=== PATIENT | male | born 1965 | race Caucasian/White ===

== ENCOUNTER 2023-10-20 18:18 | Emergency (ER) | payer BC, SELFPAY ==
[2023-10-20 18:19] VITALS: BP 180/107
--- NOTE | 2023-10-20 19:23 | ED.GENMED ---
History of Present Illness
General
Chief Complaint: Musculo-Skeletal Complaint
Source: patient and spouse
Exam Limitations: none
Time Seen by Provider: 10/20/23 18:37
Nursing documentation reviewed up to this point in time: agreed with
History of Present Illness
History of Present Illness:
58-year-old male presenting to the emergency department today with concerns of a pop and sensation of sharp pain to the right leg after using rubbing her peñaloza. Difficulty straightening her leg since. Denies numbness weakness or additional concerns
otherwise.
Past History
Past History
ED Past Medical History: Asthma and Other (Kindey stones)
ED Past Surgical History: Orthopedic
Social History
Tobacco: Non-smoker
Alcohol: Occasional
Personal:
Living: with family
Employment: Employed
Family History
Family History: Hypertension and CAD
Review of Systems
Review of Systems
Allergies reviewed?: Yes
All Other Systems: ROS reviewed and negative except as documented in HPI and ROS
Phy Exam
Physical Exam
Physical Exam:
GENERAL: Alert , in no apparent distress
EYE: pupils equal and reactive
NECK: Supple, no significant adenopathy.
ENT: o/p clr, mmm.
CARDIAC: Regular rate and rhythm .
LUNGS: Clear breath sounds bilaterally, no acute respiratory distress, no wheezes/rales/rhonchi
ABDOMEN: Soft, without focal tenderness, no r/g, no cvat
NEUROLOGICAL: Alert and oriented, no focal neuro deficits
SKIN: Warm and dry, skin intact.
MUSCULOSKELETAL: Tender palpation to the lateral aspect of the knee no joint laxity no tenderness to the bony surfaces, normal range of motion and strength of the hip and ankle. Good range of motion of the knee no edema, well perfused.
PSYCH: Normal and appropriate interaction.
Course
Orders/Labs/Results
Orders:
Orders
10/20/23 18:22
Knee, Right 4 or More Views [CR Knee- Right 4 Or More View*] Urgent
Comment:
Reason For Exam: pain
10/20/23 19:22
Knee Immobilizer Right-Treatme ONCE
Vital Signs
Initial and Last Documented VS:
Initial Vital Signs
Temp Pulse Resp BP Pulse Ox
98.0 F 68 18 180/107 96
10/20/23 18:19 10/20/23 18:19 10/20/23 18:19 10/20/23 18:19 10/20/23 18:19
Last Documented Vital Signs
Temp Pulse Resp BP Pulse Ox
98.0 F 68 18 180/107 96
10/20/23 18:19 10/20/23 18:19 10/20/23 18:19 10/20/23 18:19 10/20/23 18:19
MDM/Problems Addressed
MDM/Problems Addressed:
58-year-old male presenting to the emergency department today with concerns of a popping sensation to the right knee and lateral knee discomfort. X-ray without acute abnormalities. Normal neurological and vascular examination. Tenderness mainly
to the lateral knee actually consistent with LCL injury. Patient was placed in a knee immobilizer and advised to orthopedic follow-up. Return precautions given.
*Critical Care Note
Total Time (30-74mins, 75-104mins- exclusive of procedures): Not Applicable
ED Attending Note
-
Portions of this chart may have been created with voice recognition software.� Occasional wrong word or��sound alike� substitutions may have occurred due to the inherent limitations of voice recognition software.
Discharge Plan
Departure
Patient Disposition: Home (Routine Discharge)
Date of Disposition: 10/20/23
Time of Disposition: 19:23
Patient with high blood pressure during this ER visit?: No
Condition: Good
Covid-19: Not Applicable
Discharge Problem:
Knee sprain
Instructions: Knee Sprain (DC)
Prescriptions:
No Action
multivitamin 1 EACH tablet
1 ea PO DAILY
aspirin 81 MG tablet,delayed release (DR/EC)
81 mg PO DAILY
montelukast 10 MG tablet
10 mg PO QPM
TRILIPIX
1 tab PO HS
ondansetron 4 MG tablet,disintegrating
4 mg PO TIDPRN PRN (Reason: NAUSEA) Qty: 20 0RF
ondansetron [Zofran ODT] 8 MG tablet,disintegrating
8 mg PO TIDPRN PRN (Reason: vomiting) Qty: 15 0RF
hydrocodone-acetaminophen [Vicodin] 1 EACH tablet
1 ea PO Q6HPRN PRN (Reason: pain) Qty: 10 0RF
azithromycin [Zithromax] 250 MG tablet
250 mg PO UD Qty: 1 0RF
prednisone 10 MG tablets,dose pack
10 mg PO DAILY Qty: 42 0RF
Rx Instructions:
Take 6 pills daily on days 1 and 2,
Take 5 pills daily on days 3 and 4,
Take 4 pills daily on days 5 and 6,
Take 3 pills daily on days 7 and 8,
Take 2 pills daily on days 9 and 10,
Take 1 pill daily on days 11 and 12.
oxycodone-acetaminophen 1 TABLET tablet
1 - 2 tab PO Q4HPRN PRN (Reason: prn for pain) Qty: 30 0RF
diazepam 5 MG tablet
5 mg PO TIDPRN PRN (Reason: prn for muscle relaxation) Qty: 14 0RF
ibuprofen 600 MG tablet
600 mg PO Q6 Qty: 20 0RF
Referrals:
Charan Brown MD [Family Provider] -
Ronnie Tapia MD [Active] - Follow up in 5-7 days
Activity Restrictions/Additional Instructions:
You came to the emergency department today with concerns of a knee discomfort. You had a normal x-ray. This is likely a soft tissue injury to your knee. Please use the knee immobilizer and follow-up closely with orthopedics for reassessment.
Return to the emergency department any worsening, new or concerning symptoms.
Interventions
Interventions:
*Risk Screen - Suicide Last Done: 10/20/23 18:24
*General Assessment Last Done: 10/20/23 18:24
*Neglect/Abuse Screening Last Done: 10/20/23 18:24
ED- Fall Risk Assessment Last Done: 10/20/23 18:24
ED-Musculoskeletal Assessment Last Done: 10/20/23 18:24
Discharge Date and Time
Print Language: DANISH
== END 2023-10-20 19:33 | disposition home or self-care (01) ==
LOC: EMR 18:18
PROVIDERS: EMERGENCY PHYSICIAN Emergency Medicine; FAMILY PHYSICIAN Family Medicine
DX: S83.91XA Sprain of unspecified site of right knee, initial encounter (principal); X58.XXXA Exposure to other specified factors, initial encounter; J45.909 Unspecified asthma, uncomplicated; I10 Essential (primary) hypertension; I25.10 Atherosclerotic heart disease of native coronary artery without angina pectoris; Z82.49 Family history of ischemic heart disease and other diseases of the circulatory system
CPT/HCPCS: 99283; 73564

== ENCOUNTER → 2024-12-09 10:26 | Outpatient (REF) | payer BC, SELFPAY ==
[2024-12-09 11:15] LABS: Blood Urea Nitrogen 24 mg/dl (9-20); Calcium 10.1 mg/dl (8.4-10.2); Carbon Dioxide 25 mmol/L (22-30); Chloride 112 mmol/L (98-107); Glucose 92 mg/dl (70-99); Potassium 4.7 mmol/L (3.5-5.1); Sodium 142 mmol/L (135-145); eGFR > 60.00
[2024-12-09 11:18] LABS: Hematocrit 45.3 % (39.0-52.0); Hemoglobin 15.0 g/dL (13.0-18.0); Mean Corp Hgb Conc. 33.1 g/dL (33.0-37.0); Mean Corpuscular Volume 85.2 fL (80.0-94.0); Nucleated Red Blood Cells % 0 % (-); Platelet Count 238 10^3/uL (130-400); Red Cell Dist. Width 12.3 % (11.5-14.5)
== END ==
LOC: RCS 10:26
PROVIDERS: ATTENDING PHYSICIAN Orthopaedic Surgery; FAMILY PHYSICIAN Family Medicine
DX: Z01.818 Encounter for other preprocedural examination (principal)
CPT/HCPCS: 36415; 80048; 85025; 93005